=== PATIENT | male | born 2000 | race Caucasian/White ===

== ENCOUNTER 2023-12-29 13:47 | Emergency (ER) | payer OTHER, SELFPAY ==
[2023-12-29 13:59] VITALS: BP 156/71; PULSE 90; RESP 16; TEMP 37.2; O2SAT 100; BMI 22.4
[2023-12-29 16:50] LABS: Bacteria Urine Occasional (0-1); Culture Indicated Urine Cult Not Indicated; RBC Urine 10-30/HPF (0-5/HPF); Squamous Epithelial Cell Urine 0-1 /HPF (0-5/HPF); Urine Volume 10mL (spun); WBC Urine 0-1/HPF (0-5/HPF)
--- NOTE | 2023-12-29 17:35 | ED.MALEGU ---
HPI - Male Genitourinary <Isadora Lofton PA-C - Last Filed: 12/29/23 18:32> General Chief complaint: Urogenital-Male Stated complaint: urinating blood/ chafing groin area Time Seen by Provider: 12/29/23 14:43 Source: patient Mode of arrival: Ambulatory History of Present Illness HPI Narrative: 23-year-old male with no reported past medical history presents to the ED with 1 week of genital rash. Patient states that he has had a erythematous, scaly rash in the groin. Patient noted some blood in his urine earlier today. Patient also complains of a headache. Not sexually active. Patient states he has had UTIs in the past. Patient has a distant history of kidney stones. No fever, chills, chest pain, shortness of breath, abdominal pain, nausea, vomiting, dysuria, lightheadedness, dizziness, syncope. Related Data Previous Rx's Medication Instructions Recorded fluconazole 200 mg tablet 200 mg PO WEEKLY #4 tabs 12/29/23 fluconazole 200 mg tablet 200 mg PO WEEKLY #4 tabs 12/29/23 Allergies Allergy/AdvReac Type Severity Reaction Status Date / Time No Known Drug Allergies Allergy Verified 12/29/23 13:59 Review of Systems <Isadora Lofton PA-C - Last Filed: 12/29/23 18:32> Constitutional Constitutional: Denies chills, Denies fatigue, Denies fever(s), Denies frequent falls, Reports headache(s), Denies lethargy and Denies weakness Eyes Eyes: Denies change in vision, Denies eye discharge, Denies irritation and Denies loss of vision ENT Ears, Nose, Mouth, and Throat: Denies change in voice, Denies dizziness, Reports headache(s), Denies neck pain, Denies sore throat and Denies throat swelling Cardiovascular Cardiovascular: Denies chest pain, Denies irregular heart rhythm, Denies lightheadedness, Denies palpitations, Denies dyspnea, Denies dyspnea on exertion and Denies orthopnea Respiratory Respiratory: Denies cough, Denies dyspnea, Denies dyspnea on exertion and Denies wheezing Gastrointestinal Gastrointestinal: Denies abdominal pain, Denies change in bowel habits, Denies diarrhea, Denies nausea and Denies vomiting Musculoskeletal Musculoskeletal: Denies neck pain and Denies numbness Integumentary/Breasts Skin/Breast: Denies pruritus, Denies erythema, Denies rash and Denies wounds Comments: Genital rash Neurologic Neurologic: Denies behavioral changes, Denies confusion, Denies dizziness, Denies frequent falls, Reports headache(s), Denies loss of vision, Denies numbness and Denies weakness Psychiatric Psychiatric: Denies anxiety, Denies behavioral changes, Denies confusion, Denies depression, Denies homicidal ideation and Denies suicidal ideation Endocrine Endocrine: Denies fatigue, Denies flushing and Denies palpitations Hematologic/Lymphatic Hematologic/Lymphatic: Denies easy bruising Allergic/Immunologic Allergic/Immunologic: Denies urticaria, Denies throat swelling and Denies wheezing Patient History <Isadora Lofton PA-C - Last Filed: 12/29/23 18:32> Social History Smoking Status: Never smoker Smoking Status: Never smoker alcohol intake frequency: a few times a week Substance Use Type: does not use Exam <Isadora Lofton PA-C - Last Filed: 12/29/23 18:32> Narrative Exam Narrative: Const General:?cooperative, healthy appearing and comfortable [facility] Head:?normal to inspection Ears:?hearing grossly normal bilaterally Nose:?external nose normal Face and sinus:?normal facial exam and sinuses nontender Mouth:?oral mucosae normal Throat:?posterior oropharynx normal Eyes General:?appearance normal, both eyes and all related structures Neck Neck:?normal visual inspection and no lymphadenopathy noted Resp Effort & Inspection:?normal respiratory effort Auscultation:?clear to auscultation bilaterally Cardio Rate:?regular rate Rhythm:?regular rhythm Erythematous, scaly rash consistent with tinea cruris. Neuro General:?patient alert, patient awake and patient oriented x3 Initial Vital Signs Initial Vital Signs: Vital Signs Temperature 98.9 F 12/29/23 13:59 Pulse Rate 90 12/29/23 13:59 Respiratory Rate 16 12/29/23 13:59 Blood Pressure 156/71 H 12/29/23 13:59 Pulse Oximetry 100 12/29/23 13:59 Oxygen Delivery Method Room Air 12/29/23 13:59 <Tess Sue DO - Last Filed: 12/29/23 19:40> Initial Vital Signs Initial Vital Signs: Vital Signs Temperature 98.9 F 12/29/23 13:59 Pulse Rate 90 12/29/23 13:59 Respiratory Rate 16 12/29/23 13:59 Blood Pressure 156/71 H 12/29/23 13:59 Pulse Oximetry 100 12/29/23 13:59 Oxygen Delivery Method Room Air 12/29/23 13:59 Course <Isadora Lofton PA-C - Last Filed: 12/29/23 18:32> Orders Ordered: ED Orders 12/29/23 16:15 Chlamydia Gonorrhea PCR -URINE Stat 12/29/23 16:16 Urine Microscopic Stat Vital Signs Vital signs: Vital Signs - 8 hr 12/29/23 13:59 12/29/23 18:56 Temperature 98.9 F Pulse Rate 90 104 H Respiratory Rate 16 16 Blood Pressure 156/71 H 135/78 Pulse Oximetry 100 100 Oxygen Delivery Method Room Air Room Air <Tess Sue DO - Last Filed: 12/29/23 19:40> Orders Ordered: ED Orders 12/29/23 16:15 Chlamydia Gonorrhea PCR -URINE Stat 12/29/23 16:16 Urine Microscopic Stat Vital Signs Vital signs: Vital Signs - 8 hr 12/29/23 13:59 12/29/23 18:56 Temperature 98.9 F Pulse Rate 90 104 H Respiratory Rate 16 16 Blood Pressure 156/71 H 135/78 Pulse Oximetry 100 100 Oxygen Delivery Method Room Air Room Air MDM - Male Genitourinary <Isadora Lofton PA-C - Last Filed: 12/29/23 18:32> Lab Data Labs: Lab Results 12/29/23 12/29/23 Range/Units 16:15 16:16 Urine RBC 10-30/hpf H (0-5/HPF) Urine WBC 0-1/hpf (0-5/HPF) Ur Squamous Epith Cells 0-1 /hpf (0-5/HPF) Urine Bacteria Occasional (0-1) (None) Ur Culture Indicated? Cult not indicated Vol Urine Centrifuged 10ml (spun) Ur Chlamydia DNA (PCR) Not detected N gonorrhoeae DNA (PCR) Not detected Urine Dip Bedside Urine Glucose Negative Bedside Urine Bilirubin - Negative Bedside Urine Ketone - Negative Urine Specific Imperial 1.010 Bedside Urine Occult Blood +++ Bedside Urine pH 6.5 Bedside Urine Protein - Negative Bedside Urine Urobilinogen - Negative Bedside Urine Nitrite - Negative Bedside Urine Leukocytes - Negative Esterase MDM Narrative Medical decision making narrative: 23-year-old male with no reported past medical history presents to the ED with 1 week of genital rash. UA shows hematuria, no infection. GC is negative. Patient presentation is most consistent with tinea cruris. Prescribed fluconazole. Recommend PCP follow-up. ED return precautions discussed with patient. Patient verbalized understanding. Medical records reviewed: Yes <Tess Sue DO - Last Filed: 12/29/23 19:40> Lab Data Labs: Lab Results 12/29/23 12/29/23 Range/Units 16:15 16:16 Urine RBC 10-30/hpf H (0-5/HPF) Urine WBC 0-1/hpf (0-5/HPF) Ur Squamous Epith Cells 0-1 /hpf (0-5/HPF) Urine Bacteria Occasional (0-1) (None) Ur Culture Indicated? Cult not indicated Vol Urine Centrifuged 10ml (spun) Ur Chlamydia DNA (PCR) Not detected N gonorrhoeae DNA (PCR) Not detected Urine Dip Bedside Urine Glucose Negative Bedside Urine Bilirubin - Negative Bedside Urine Ketone - Negative Urine Specific Imperial 1.010 Bedside Urine Occult Blood +++ Bedside Urine pH 6.5 Bedside Urine Protein - Negative Bedside Urine Urobilinogen - Negative Bedside Urine Nitrite - Negative Bedside Urine Leukocytes - Negative Esterase Discharge Plan Departure Patient Disposition: Home Clinical Impression: Tinea cruris Instructions: Jock Itch Activity Restrictions/Additional Instructions: You were evaluated in the ED today for a groin rash. It appears you have a fungal infection. You are being prescribed an antifungal oral medication to take for the next 2-4 weeks. Please follow-up with your primary care doctor as soon as possible. Return to the ED if you have worsening symptoms. Prescriptions: New fluconazole 200 mg tablet 200 mg PO WEEKLY Qty: 4 0RF Rx Instructions: Take 200mg by mouth weekly for 2-4 weeks until resolution fluconazole 200 mg tablet 200 mg PO WEEKLY Qty: 4 0RF Rx Instructions: Take 200 mg p.o. weekly for 2-4 weeks until resolution Referrals: Miscellaneous,[facility] [Primary Care Provider] - Stand Alone Forms: Patient Portal/API ED Sign-out <Tess Sue DO - Last Filed: 12/29/23 19:40> Cosign ED Attending Michelle Attestation: I was available for consultation.
[2023-12-29 17:55] LABS: Urine N gonorrhoeae NOT DETECTED
[2023-12-29 17:57] LABS: Urine Chlamydia NOT DETECTED
[2023-12-29 18:56] VITALS: BP 135/78; PULSE 104; RESP 16; O2SAT 100
== END 2023-12-29 18:50 | disposition home or self-care (01) ==
PROVIDERS: Emergency Provider Student in an Organized Health Care Education/Training Program
DX: B35.6 Tinea cruris (principal)
CPT/HCPCS: 81003; 81015; 87491; 87591; 99282; 99283